=== PATIENT | female | born 1970 | race American Indian/Alaskan Native ===

== ENCOUNTER 2016-09-15 08:57 | Emergency (ER) | payer OTHER ==
[2016-09-15] MEDS ORDERED: TORADOL IM ONE (09:53)
[2016-09-15] MEDS ORDERED: TENORMIN PO ONE (10:03)
--- NOTE | 2016-09-15 10:22 | Emergency Department Report ---
ED Back Pain/Injury HPI - General Chief Complaint: Back Pain/Injury Stated Complaint: BODY PAIN Time Seen by Provider: 09/15/16 09:22 Source: patient Limitations: No Limitations - History of Present Illness Initial Comments: 46 y/o female complain of low back pain x1 day that radiate to right leg.pt state previous pain with relief of motrin 800.pt denies any prior medication .denies any injury . MD Complaint: back pain Onset/Timin -: days(s) Similar Symptoms Previously: Yes Place: home Radiation: right leg Severity: moderate Severity scale (0 -10): 5 Quality: aching Consistency: intermittent Improves With: none Worsens With: movement Associated Symptoms: denies other symptoms - Related Data Previous Rx's Medication Instructions Recorded Last Taken Type Ibuprofen [Motrin] 800 mg PO Q8H #30 tablet 07/26/14 Unknown Rx methOCARBAMOL [Robaxin] 500 mg PO BID #30 tab 07/26/14 Unknown Rx HYDROcodone/APAP 5-325 [[place] 1 - 2 each PO Q6HR PRN #10 tablet 04/03/15 Unknown Rx 5/325] metroNIDAZOLE [Flagyl TAB] 500 mg PO Q12HR #14 tab 04/03/15 Unknown Rx Atenolol [Tenormin] 25 mg PO DAILY #60 tab 03/16/16 Unknown Rx traMADol [Ultram 50 MG tab] 50 mg PO Q6HR PRN #20 tablet 03/16/16 Unknown Rx Atenolol [Tenormin] 25 mg PO DAILY #30 tab 09/15/[address] [Voltaren Dr] 75 mg PO TID #30 tablet 09/15/16 Unknown Rx Allergies Allergy/AdvReac Type Severity Reaction Status Date / Time No Known Allergies Allergy Unverified 07/26/14 08:23 ED Review of Systems ROS: Stated complaint: BODY PAIN Other details as noted in HPI Constitutional: denies: chills, fever Eyes: denies: eye pain, eye discharge, vision change ENT: denies: ear pain, throat pain Respiratory: denies: cough, shortness of breath, wheezing Cardiovascular: denies: chest pain, palpitations Endocrine: no symptoms reported Gastrointestinal: denies: abdominal pain, nausea, diarrhea Genitourinary: denies: urgency, dysuria, discharge Musculoskeletal: back pain. denies: joint swelling, arthralgia Skin: denies: rash, lesions Neurological: denies: headache, weakness, paresthesias Psychiatric: denies: anxiety, depression Hematological/Lymphatic: denies: easy bleeding, easy bruising ED Past Medical Hx - Past Medical History Hx Hypertension: Yes (no meds) - Surgical History Additional Surgical History: tubal ligation, hysterectomy - Social History Smoking Status: Current Every Day Smoker Substance Use Type: Alcohol - Medications Home Medications: Home Medications Medication Instructions Recorded Confirmed Last Taken Type Ibuprofen [Motrin] 800 mg PO Q8H #30 tablet 07/26/14 Unknown Rx methOCARBAMOL [Robaxin] 500 mg PO BID #30 tab 07/26/14 Unknown Rx HYDROcodone/APAP 5-325 [[place] 1 - 2 each PO Q6HR PRN #10 tablet 04/03/15 Unknown Rx 5/325] metroNIDAZOLE [Flagyl TAB] 500 mg PO Q12HR #14 tab 04/03/15 Unknown Rx Atenolol [Tenormin] 25 mg PO DAILY #60 tab 03/16/16 Unknown Rx traMADol [Ultram 50 MG tab] 50 mg PO Q6HR PRN #20 tablet 03/16/16 Unknown Rx Atenolol [Tenormin] 25 mg PO DAILY #30 tab 09/15/[address] [Voltaren Dr] 75 mg PO TID #30 tablet 09/15/16 Unknown Rx ED Physical Exam - General Limitations: No Limitations General appearance: alert, in no apparent distress - Head Head exam: Present: atraumatic, normocephalic - Eye Eye exam: Present: normal appearance, PERRL Pupils: Present: normal accommodation - ENT ENT exam: Present: mucous membranes moist - Neck Neck exam: Present: normal inspection - Respiratory Respiratory exam: Present: normal lung sounds bilaterally. Absent: respiratory distress - Cardiovascular Cardiovascular Exam: Present: regular rate, normal rhythm. Absent: systolic murmur, diastolic murmur, rubs, gallop - GI/Abdominal GI/Abdominal exam: Present: soft, normal bowel sounds - Extremities Exam Extremities exam: Present: normal inspection - Back Exam Back exam: Present: normal inspection, full ROM, tenderness, muscle spasm, paraspinal tenderness. Absent: CVA tenderness (R), CVA tenderness (L), vertebral tenderness - Expanded Back Exam Expanded Back exam: Absent: saddle anesthesia Back exam: Sciatic Notch Tenderness: Right, Positive Straight Leg Raise: Right, Negative Straight Leg Raising: Left - Neurological Exam Neurological exam: Present: alert, oriented X3 - Psychiatric Psychiatric exam: Present: normal affect, normal mood - Skin Skin exam: Present: warm, dry, intact, normal color. Absent: rash ED Course Vital Signs 09/15/16 09/15/16 09/15/16 09:02 10:04 10:20 Temperature 98.3 F Pulse Rate 82 82 Respiratory 20 18 Rate Blood Pressure 160/110 160/110 O2 Sat by Pulse 100 Oximetry ED Medical Decision Making - Radiology Data 2 v lumbar soine Impression : degenerative changes facet joints lower lumbar spine - Medical Decision Making degenerative joint in lower lumbar spine with sciatic pt was given tordal during course of Ed decrease pain to 5/10 Critical care attestation.: If time is entered above; I have spent that time in minutes in the direct care of this critically ill patient, excluding procedure time. ED Disposition Clinical Impression: Low back pain Qualifiers: Chronicity: acute Back pain laterality: bilateral Sciatica presence: with sciatica Sciatica laterality: sciatica of right side Qualified Code(s): M54.41 - Lumbago with sciatica, right side Disposition: DISCHARGED TO HOME OR SELFCARE Is pt being admited?: No Does the pt Need Aspirin: No Condition: Stable Instructions: Lumbar Radiculopathy (ED), Sciatica (ED) Prescriptions: Atenolol [Tenormin] 25 mg PO DAILY #[address] [Voltaren Dr] 75 mg PO TID #30 tablet Referrals: PRIMARY CARE, [Primary Care Provider] - 3-5 Days [facility] [Outside] - 3-5 Days Forms: Work/School Release Form(ED) Time of Disposition: 11:16
--- NOTE | 2016-09-15 10:42 | XRay Report ---
Lumbar spine 3 views: History: Back pain. Findings: Normal height of vertebral bodies and intervertebral disc. Normal articular surfaces. No fracture. Degenerative changes at the L4-5 and L5-S1 posterior elements. Impression: Degenerative changes facet joints lower lumbar spine.
[2016-09-15 11:26] VITALS: BP 142/99
== END 2016-09-15 11:27 | disposition home or self-care (01) ==
LOC: ED 08:57
DX: M54.41 Lumbago with sciatica, right side (principal); I10 Essential (primary) hypertension; F17.200 Nicotine dependence, unspecified, uncomplicated; Z98.51 Tubal ligation status; Z90.710 Acquired absence of both cervix and uterus
CPT/HCPCS: 72100; 96372; 99283; J1885

== ENCOUNTER 2016-10-21 15:09 | Emergency (ER) | payer SELFPAY ==
[2016-10-21 16:26] VITALS: BP 152/95
--- NOTE | 2016-10-21 19:44 | Emergency Department Report ---
Upper Extremity - HPI Chief Complaint: Pain General Stated Complaint: HAND/WRIST/ARM PAIN Time Seen by Provider: 10/21/16 19:38 Upper Extremity: Right Forearm (pain that started tingling), Right Wrist (pain it's tingling), Right Hand (pain that is tingling with swelling to hand.) Occurred When: >5 Days Mechanism: Unsure Severity: moderate Symptoms: Yes Pain with Movement (right hand/wrist and forearm), Yes Weakness ( right hand ), Yes Swelling (mild swelling to right hand), No Deformity, No Limited Range of Movement, No Numbness, No Bruising/Ecchymosis, No Laceration or Abrasion Other History: Patient here reports that she is having right hand pain with wrist and right forearm pain. Neuro nonfocal because she denies any injury. She says she's been taking [id number] medication without any relief. She denies any fall. Redness or fever. He said it's painful to move her right hand and it radiates to her wrist and distal forearm. ED Review of Systems ROS: Stated complaint: HAND/WRIST/ARM PAIN Other details as noted in HPI Comment: All other systems reviewed and negative Constitutional: no symptoms reported Respiratory: no symptoms reported Cardiovascular: denies: chest pain, palpitations, edema, syncope Gastrointestinal: denies: nausea, vomiting Musculoskeletal: joint swelling, arthralgia. denies: back pain Skin: denies: rash Neurological: weakness, paresthesias. denies: abnormal gait, vertigo ED Past Medical Hx - Past Medical History Previous Medical History?: Yes Hx Hypertension: Yes - Surgical History Past Surgical History?: Yes Additional Surgical History: tubal ligation, hysterectomy - Family History Family history: hypertension - Social History Smoking Status: Current Every Day Smoker Substance Use Type: Alcohol, Prescribed - Medications Home Medications: Home Medications Medication Instructions Recorded Confirmed Last Taken Type Ibuprofen [Motrin] 800 mg PO Q8H #30 tablet 07/26/14 Unknown Rx methOCARBAMOL [Robaxin] 500 mg PO BID #30 tab 07/26/14 Unknown Rx HYDROcodone/APAP 5-325 [[place] 1 - 2 each PO Q6HR PRN #10 tablet 04/03/15 Unknown Rx 5/325] metroNIDAZOLE [Flagyl TAB] 500 mg PO Q12HR #14 tab 04/03/15 Unknown Rx Atenolol [Tenormin] 25 mg PO DAILY #60 tab 03/16/16 Unknown Rx traMADol [Ultram 50 MG tab] 50 mg PO Q6HR PRN #20 tablet 03/16/16 Unknown Rx Atenolol [Tenormin] 25 mg PO DAILY #30 tab 09/15/[address] [Voltaren Dr] 75 mg PO TID #30 tablet 09/15/16 Unknown Rx HYDROcodone/APAP 5-325 [[place] 1 each PO Q6HR PRN #12 tablet 10/21/16 Unknown Rx 5/325] Ibuprofen [Motrin] 600 mg PO Q8H PRN #21 tablet 10/21/16 Unknown Rx Upper Extremity Exam - Exam General: Vital signs noted. No distress. Alert and acting appropriately. This is a 46-year-old female well-nourished well-developed in no acute distress. Head and Torso: No HEENT Abnormality, No Neck Tenderness, No Chest/Lungs Abnormality, No Abdominal Tenderness, No Back Tenderness Shoulder Exam: Yes Normal Range of Motion in Shoulder, No Shoulder Tenderness, No Clavicle Tenderness, No Shoulder Deformity, No AC Joint Tenderness Arm Exam: No Arm/Humerus Tenderness, No Arm Deformity Elbow: Yes Normal Range of Motion in Elbow, No Elbow Tenderness, No Elbow Deformity Forearm: Yes Forearm Tenderness (distal right forearm), No Forearm Deformity, No Pain with Pronation, No Pain with Supination Wrist: Yes Wrist Tenderness (right wrist), Yes Normal ROM in Wrist, Yes Snuffbox Tenderness, No Wrist Deformity, No Pain with Axial Thumb Compression Hand: Yes Hand Tenderness (right hand pain and swelling), Yes Normal ROM in Digit(s), No Hand Deformity, No Digit Tenderness, No Digit(s) Deformity, No Tendon Dysfunction CMS Exam: Yes Normal Distal Pulses, Yes Normal Capillary Refill, Yes Normal Distal Sensation, No Broken Skin ED Course Vital Signs 10/21/16 16:21 Temperature 97.9 F Pulse Rate 66 Respiratory 18 Rate Blood Pressure 152/95 O2 Sat by Pulse 100 Oximetry - Reevaluation(s) Reevaluation #1: 10/21/16 21:43 Given Toradol 60 mg IM and Decadron 10 mg IM and said she didn't have any relief in her pain. She is here by herself so I cannot give her anything stronger. - Orthopedic Splinting/Casting Injury #1 Side: right Upper Extremity Injury Location: wrist, hand Upper Extremity Immobilizer: thumb spica ED Medical Decision Making - Radiology Data Radiology results: report reviewed X-ray of right forearm revealed no fracture or dislocation or bony abnormality. X-ray of right hand reveal subtle. Ostitis along diaphysis the second metacarpal patient may reflect a healing fracture also on actual fractures not directly identified. X-ray of right wrist revealed no acute abnormalitie. The possible periostitis seen along the second metacarpal on the hand image is not identified on the wrist views. If Scaphoid fracture is suspected clinically, recommend follow-up radiographic in 7-10 days as these fractures can be initially occult. Patient with positive snuffbox tenderness. - Medical Decision Making ED course: I discussed the patient that although there is not an obvious fracture in her wrist and hand the radiologist. That is a possibility of an occult fracture in her hand and she will need to follow-up with orthopedic doctor in 7-10 days to have repeat x-ray of wrist and hand. And with positive snuffbox tenderness. She has pain with movement and swelling to dorsal aspect of hand. Discussed with her that x-ray of forearm was normal and there were no fractures seen in the wrist. Patient was given Decadron 10 mg IM and Toradol 60 mg IM and emergency room. He was understanding of diagnosis and discharge instruction. See procedure note for splinting details. Discharged home in stable condition with prescription for Kevil and Motrin. Critical care attestation.: If time is entered above; I have spent that time in minutes in the direct care of this critically ill patient, excluding procedure time. ED Disposition Clinical Impression: Arthralgia of multiple sites, Suspected fracture of bone, Swelling of joint, hand, right Disposition: DISCHARGED TO HOME OR SELFCARE Is pt being admited?: No Does the pt Need Aspirin: No Condition: Stable Instructions: Arthralgia (ED), Splint Care (ED) Additional Instructions: Your xray report shows that there might be a suspected fracture of her hand so please wear splint until you see orthopedic doctor. Take medication as prescribed and please avoid driving and operating heavy machinery while taking and K[place] as this can cause orthopedic doctor. Prescriptions: HYDROcodone/APAP 5-325 [[place] 5/325] 1 each PO Q6HR PRN #12 tablet PRN Reason: Pain Ibuprofen [Motrin] 600 mg PO Q8H PRN #21 tablet PRN Reason: Pain Referrals: CARLOS MUNIZ MD [Staff Physician] - 7-10 days Forms: Work/School Release Form(ED)
[2016-10-21] MEDS ORDERED: TORADOL IM ONE (19:45)
[2016-10-21] MEDS ORDERED: DECADRON IM STA (19:45)
--- NOTE | 2016-10-21 20:57 | XRay Report ---
FINAL REPORT EXAM: XR FOREARM 1V RT HISTORY: RT fA pain TECHNIQUE: Right forearm, AP and lateral PRIORS: None. FINDINGS: There is no fracture seen. There is no dislocation seen. There is no focal osseous lesion identified. IMPRESSION: There is no acute abnormality identified.
--- NOTE | 2016-10-21 20:59 | XRay Report ---
FINAL REPORT EXAM: XR HAND 3 RT HISTORY: pain /swelling rt hand TECHNIQUE: Three views of the right hand. PRIORS: None. FINDINGS: Oblique view of the hand demonstrate some probable smooth periostitis along the shaft of the 2nd metacarpal. This could reflect a healing fracture although actual fracture not visualized. There is some degenerative changes at the 2nd and 3rd MCP joints. There is no evidence of joint dislocation. IMPRESSION: Subtle periostitis along diaphysis of 2nd metacarpal which may reflect a healing fracture although an actual fracture not directly identified.
--- NOTE | 2016-10-21 21:00 | XRay Report ---
FINAL REPORT EXAM: XR WRIST 3 RT HISTORY: Pain TTP rt snuff box TECHNIQUE: Three views of the right wrist PRIORS: None. FINDINGS: There is no evidence of acute fracture. There is no evidence of joint dislocation. There is no significant focal osseous lesions seen. IMPRESSION: There is no acute abnormality identified. The possible periostitis seen along 2nd metacarpal on the hand images is not identified on wrist views. If scaphoid fracture is suspected clinically, recommend follow-up radiographs 7-10 days as these fractures can be initially occult.
== END 2016-10-21 22:11 | disposition home or self-care (01) ==
LOC: ED 15:09
DX: M25.531 Pain in right wrist (principal); M25.541 Pain in joints of right hand; I10 Essential (primary) hypertension; F17.200 Nicotine dependence, unspecified, uncomplicated; Z98.51 Tubal ligation status; Z90.710 Acquired absence of both cervix and uterus
CPT/HCPCS: 29125; 73090; 73110; 73130; 96372; 99283; J1100; J1885

== ENCOUNTER 2017-11-10 15:24 | Emergency (ER) | payer SELFPAY ==
[2017-11-10 20:35] VITALS: BP 156/99
[2017-11-10] MEDS ORDERED: DILAUDID IV ONE (21:20)
[2017-11-10] MEDS ORDERED: TORADOL IV ONE (21:20)
--- NOTE | 2017-11-10 21:21 | Emergency Department Report ---
ED Back Pain/Injury HPI - General Chief Complaint: Back Pain/Injury Stated Complaint: BACK/LEG/HIP PAIN RIGHT SIDE Time Seen by Provider: 11/10/17 21:00 Source: patient, RN notes reviewed Limitations: No Limitations - History of Present Illness Initial Comments: This is a 47-year-old female. The patient is previously known to this provider. She does not have a local primary care doctor. She has a past medical history of hypertension and a distant history of hysterectomy. Patient also has a history of "lumbar disc disease." Patient presents to the ER with a complaint of nontraumatic right lower back pain that radiates down the right lower extremity. This has been present for one week, and increases with walking, range of motion , twisting. There is no fevers, chills, nausea, vomiting, chest pain, abdominal pain. There is no bladder or bowel retention or incontinence. There is no saddle anesthesia. MD Complaint: back pain -: Gradual, days(s) Similar Symptoms Previously: Yes Radiation: buttocks, right leg Severity: moderate Quality: burning, sharp Consistency: intermittent Improves With: other Worsens With: movement, supine, sitting upright, walking Associated Symptoms: numbness. denies: confusion, weakness, chest pain, difficulty walking, cough, difficulty urinating, diaphoresis, incontinence, fever/chills, constipation, headaches, abdominal pain, loss of appetite, malaise , nausea/vomiting, rash, seizure, shortness of breath, syncope - Related Data Previous Rx's Medication Instructions Recorded Last Taken Type Ibuprofen [Motrin] 800 mg PO Q8H #30 tablet 07/26/14 Unknown Rx methOCARBAMOL [Robaxin] 500 mg PO BID #30 tab 07/26/14 Unknown Rx HYDROcodone/APAP 5-325 [[place] 1 - 2 each PO Q6HR PRN #10 tablet 04/03/15 Unknown Rx 5/325] metroNIDAZOLE [Flagyl TAB] 500 mg PO Q12HR #14 tab 04/03/15 Unknown Rx Atenolol [Tenormin] 25 mg PO DAILY #60 tab 03/16/16 Unknown Rx traMADol [Ultram 50 MG tab] 50 mg PO Q6HR PRN #20 tablet 03/16/16 Unknown Rx Atenolol [Tenormin] 25 mg PO DAILY #30 tab 09/15/16 Unknown Rx Abril Chin [Radha Chin] 75 mg PO TID #30 tablet 09/15/16 Unknown Rx HYDROcodone/APAP 5-325 [[place] 1 each PO Q6HR PRN #12 tablet 10/21/16 Unknown Rx 5/325] Ibuprofen [Motrin] 600 mg PO Q8H PRN #21 tablet 10/21/16 Unknown Rx Acetaminophen [Tylenol Arthritis] 650 mg PO Q6HR PRN #30 tablet.er 11/10/17 Unknown Rx Ibuprofen [Motrin] 600 mg PO Q8H PRN #30 tablet 11/10/17 Unknown Rx Allergies Allergy/AdvReac Type Severity Reaction Status Date / Time No Known Allergies Allergy Unverified 07/26/14 08:23 ED Review of Systems ROS: Stated complaint: BACK/LEG/HIP PAIN RIGHT SIDE Other details as noted in HPI Comment: All other systems reviewed and negative ED Past Medical Hx - Past Medical History Hx Hypertension: Yes - Surgical History Additional Surgical History: tubal ligation, hysterectomy - Social History Smoking Status: Current Every Day Smoker Substance Use Type: Alcohol - Medications Home Medications: Home Medications Medication Instructions Recorded Confirmed Last Taken Type Ibuprofen [Motrin] 800 mg PO Q8H #30 tablet 07/26/14 Unknown Rx methOCARBAMOL [Robaxin] 500 mg PO BID #30 tab 07/26/14 Unknown Rx HYDROcodone/APAP 5-325 [[place] 1 - 2 each PO Q6HR PRN #10 tablet 04/03/15 Unknown Rx 5/325] metroNIDAZOLE [Flagyl TAB] 500 mg PO Q12HR #14 tab 04/03/15 Unknown Rx Atenolol [Tenormin] 25 mg PO DAILY #60 tab 03/16/16 Unknown Rx traMADol [Ultram 50 MG tab] 50 mg PO Q6HR PRN #20 tablet 03/16/16 Unknown Rx Atenolol [Tenormin] 25 mg PO DAILY #30 tab 09/15/[address] [Radha Chin] 75 mg PO TID #30 tablet 09/15/16 Unknown Rx HYDROcodone/APAP 5-325 [[place] 1 each PO Q6HR PRN #12 tablet 10/21/16 Unknown Rx 5/325] Ibuprofen [Motrin] 600 mg PO Q8H PRN #21 tablet 10/21/16 Unknown Rx Acetaminophen [Tylenol Arthritis] 650 mg PO Q6HR PRN #30 tablet.er 11/10/17 Unknown Rx Ibuprofen [Motrin] 600 mg PO Q8H PRN #30 tablet 11/10/17 Unknown Rx ED Physical Exam - General Limitations: No Limitations General appearance: alert, in no apparent distress - Head Head exam: Present: atraumatic, normocephalic - Eye Eye exam: Present: normal appearance, PERRL, EOMI - ENT ENT exam: Present: normal exam, normal orophraynx, mucous membranes moist, normal external ear exam - Neck Neck exam: Present: normal inspection, full ROM - Respiratory Respiratory exam: Present: normal lung sounds bilaterally. Absent: respiratory distress - Cardiovascular Cardiovascular Exam: Present: regular rate, normal rhythm, normal heart sounds. Absent: systolic murmur, diastolic murmur, rubs, gallop - GI/Abdominal GI/Abdominal exam: Present: soft, normal bowel sounds. Absent: distended, tenderness, guarding, rebound, rigid, pulsatile mass - Extremities Exam Extremities exam: Present: normal inspection, full ROM, normal capillary refill , other (there is a positive straight leg raise the right lower extremity. Downgoing plantar reflexes in the bilateral lower extremities. Compartments are soft in the bilateral lower extremities. 2+ pulses noted in the bilateral lower extremities. Downgoing plantar reflexes bilaterally.). Absent: pedal edema, joint swelling, calf tenderness - Back Exam Back exam: Present: normal inspection - Neurological Exam Neurological exam: Present: alert, oriented X3, CN II-XII intact, other ( Extraocular movements intact. Tongue midline. No facial droop. Facial sensation intact to light touch in the V1, V2, V3 distribution bilaterally. 5 and 5 strength in 4 extremities.. Sensation is intact to light touch in 4 extremities.). Absent: motor sensory deficit (bilateral proprioception intact in the bilateral lower extremities. Sensation intact to light touch in the bilateral lower extremities.) - Psychiatric Psychiatric exam: Present: normal affect, normal mood - Skin Skin exam: Present: warm, dry, intact, normal color. Absent: rash ED Course Vital Signs 11/10/17 11/10/17 15:26 20:30 Temperature 98.4 F Pulse Rate 70 59 L Respiratory 18 Rate Blood Pressure 156/81 156/99 O2 Sat by Pulse 96 94 Oximetry - Reevaluation(s) Reevaluation #1: 11/10/17 22:00 The patient feels much improved after pain medicine. She is able to walk with a steady gait. Her peak neurologic examination is within normal limits. She will be discharged. ED Medical Decision Making - Lab Data Vital Signs 11/10/17 11/10/17 15:26 20:30 Temperature 98.4 F Pulse Rate 70 59 L Respiratory 18 Rate Blood Pressure 156/81 156/99 O2 Sat by Pulse 96 94 Oximetry - Medical Decision Making Differential diagnosis, including not limited to: Radiculopathy, sciatica Assessment and plan: 47-year-old female with 7 days of radicular symptoms. No clinical indication of epidural compression syndrome or AAA at this time. There is no pulsatile abdominal mass. Physical exam otherwise unremarkable. There is a significant pain component to the patient's presentation. Patient will be given hydromorphone, Toradol for acute symptom relief, she will need to follow up with outpatient pain medication, primary care, neurosurgery for definitive management. Critical care attestation.: If time is entered above; I have spent that time in minutes in the direct care of this critically ill patient, excluding procedure time. ED Disposition Clinical Impression: Acute radicular low back pain Disposition: DC-01 TO HOME OR SELFCARE Is pt being admited?: No Does the pt Need Aspirin: No Condition: Stable Instructions: Lumbar Radiculopathy (ED) Additional Instructions: Rest, and avoid heavy lifting. Avoid strenuous physical activity. Take pain medication as directed. Follow up with a primary care doctor within the next month. Follow up with a pain specialist or yard specialist within the next month. Pain typically gets worse before it gets better. Return to the ER right away with new pain, worsened pain, migration of pain, fevers, chills, intractable nausea or vomiting, confusion, bladder or bowel retention/ incontinence, change in mental status. Prescriptions: Acetaminophen [Tylenol Arthritis] 650 mg PO Q6HR PRN #30 tablet.er PRN Reason: Pain Ibuprofen [Motrin] 600 mg PO Q8H PRN #30 tablet PRN Reason: Pain Referrals: MAURY ZUNIGA MD [Primary Care Provider] - 3-5 Days DARWIN SINCLAIR MD [Staff Physician] - 3-5 Days CALEB LOPEZ MD [Staff Physician] - 3-5 Days
[2017-11-10] MEDS ORDERED: DILAUDID IM ONE (21:37)
[2017-11-10] MEDS ORDERED: TORADOL IM ONE (21:38)
== END 2017-11-10 22:08 | disposition home or self-care (01) ==
LOC: ED 15:24
DX: M54.5 Low back pain (principal)
CPT/HCPCS: 96372; 99281; J1170; J1885

== ENCOUNTER 2018-01-23 12:43 | Emergency (ER) | payer SELFPAY ==
[2018-01-23] MEDS ORDERED: CATAPRES PO ONE (13:22)
--- NOTE | 2018-01-23 13:28 | Emergency Department Report ---
ED Female HPI - General Chief complaint: Abdominal Pain Stated complaint: ABD PAIN/ VAG DISCHARGE Time Seen by Provider: 01/23/18 13:24 Source: patient, family Mode of arrival: Ambulatory Limitations: No Limitations - History of Present Illness Initial comments: This is a 47-year-old female complaining of abdominal pain. 3 days to her lower abdomen and report brownish vaginal discharge for 4 days. She has a history of hypertension and she is on atenolol 25 mg daily and lisinopril 5 mg daily. She doesn't primary care physician. Platelet pressure is 194/119 and she is asymptomatic with intact neurological system. She is here because she says she is possible been exposed to STD from her who disappeared a month ago and she has heard from him. She says she was told that he had unprotected sex and she doesn't have these happen until she's had she would like to be treated for STD denies any vaginal bleeding and she has a history of hysterectomy. Abdominal pain is 7 out of 10 and crampy on and off no alleviating or exacerbating factor. No medication taken. Denies any fever or chills or nausea or vomiting. Denies any back pain. MD Complaint: vaginal discharge, pelvic pain, possible STD Onset/Timin -: days(s) Location: suprapubic Radiation: non-radiating Severity: severe Severity scale (0 -10): 7 Quality: cramping Consistency: intermittent Improves with: none Are you Now?: No (hysterectomy) Associated Symptoms: vaginal discharge, abdominal pain. denies: vaginal bleeding, nausea/vomiting, fever/chills, headaches, loss of appetite, dysuria, hematuria, rash, seizure, shortness of breath, syncope, weakness - Related Data Sexually active: No Previous Rx's Medication Instructions Recorded Last Taken Type Ibuprofen [Motrin] 800 mg PO Q8H #30 tablet 07/26/14 Unknown Rx methOCARBAMOL [Robaxin] 500 mg PO BID #30 tab 07/26/14 Unknown Rx HYDROcodone/APAP 5-325 [[place] 1 - 2 each PO Q6HR PRN #10 tablet 04/03/15 Unknown Rx 5/325] metroNIDAZOLE [Flagyl TAB] 500 mg PO Q12HR #14 tab 04/03/15 Unknown Rx traMADol [Ultram 50 MG tab] 50 mg PO Q6HR PRN #20 tablet 03/16/[address] [Voltaren Dr] 75 mg PO TID #30 tablet 09/15/16 Unknown Rx HYDROcodone/APAP 5-325 [[place] 1 each PO Q6HR PRN #12 tablet 10/21/16 Unknown Rx 5/325] Ibuprofen [Motrin] 600 mg PO Q8H PRN #21 tablet 10/21/16 Unknown Rx Acetaminophen [Tylenol Arthritis] 650 mg PO Q6HR PRN #30 tablet.er 11/10/17 Unknown Rx Ibuprofen [Motrin] 600 mg PO Q8H PRN #30 tablet 11/10/17 Unknown Rx Atenolol 50 mg PO QDAY 30 Days #30 tablet 01/23/18 Unknown Rx Fluconazole [Diflucan TAB] 100 mg PO QDAY 2 Days #2 tablet 01/23/18 Unknown Rx Lisinopril [Zestril TAB] 10 mg PO QDAY 30 Days #30 tablet 01/23/18 Unknown Rx metroNIDAZOLE [Flagyl] 500 mg PO Q12HR 7 Days #14 tab 01/23/18 Unknown Rx Allergies Allergy/AdvReac Type Severity Reaction Status Date / Time No Known Allergies Allergy Unverified 07/26/14 08:23 ED Review of Systems ROS: Stated complaint: ABD PAIN/ VAG DISCHARGE Other details as noted in HPI Constitutional: denies: chills, fever Eyes: denies: eye discharge ENT: denies: throat pain Respiratory: denies: cough, orthopnea, shortness of breath, SOB with exertion, SOB at rest, stridor, wheezing Cardiovascular: denies: chest pain, palpitations, edema, syncope Gastrointestinal: abdominal pain. denies: nausea, vomiting, diarrhea, constipation, hematemesis, melena, hematochezia Genitourinary: discharge, other (possible STD exposure). denies: urgency, dysuria, hematuria Musculoskeletal: denies: back pain, joint swelling, arthralgia, myalgia Skin: denies: rash, lesions Neurological: denies: headache, weakness ED Past Medical Hx - Past Medical History Previous Medical History?: Yes Hx Hypertension: Yes - Surgical History Past Surgical History?: Yes Additional Surgical History: tubal ligation, hysterectomy - Family History Family history: hypertension - Social History Smoking Status: Current Every Day Smoker Substance Use Type: Alcohol, Marijuana, Prescribed - Medications Home Medications: Home Medications Medication Instructions Recorded Confirmed Last Taken Type Ibuprofen [Motrin] 800 mg PO Q8H #30 tablet 07/26/14 Unknown Rx methOCARBAMOL [Robaxin] 500 mg PO BID #30 tab 07/26/14 Unknown Rx HYDROcodone/APAP 5-325 [[place] 1 - 2 each PO Q6HR PRN #10 tablet 04/03/15 Unknown Rx 5/325] metroNIDAZOLE [Flagyl TAB] 500 mg PO Q12HR #14 tab 04/03/15 Unknown Rx traMADol [Ultram 50 MG tab] 50 mg PO Q6HR PRN #20 tablet 03/16/[address] [Voltaren Dr] 75 mg PO TID #30 tablet 09/15/16 Unknown Rx HYDROcodone/APAP 5-325 [[place] 1 each PO Q6HR PRN #12 tablet 10/21/16 Unknown Rx 5/325] Ibuprofen [Motrin] 600 mg PO Q8H PRN #21 tablet 10/21/16 Unknown Rx Acetaminophen [Tylenol Arthritis] 650 mg PO Q6HR PRN #30 tablet.er 11/10/17 Unknown Rx Ibuprofen [Motrin] 600 mg PO Q8H PRN #30 tablet 11/10/17 Unknown Rx Atenolol 50 mg PO QDAY 30 Days #30 tablet 01/23/18 Unknown Rx Fluconazole [Diflucan TAB] 100 mg PO QDAY 2 Days #2 tablet 01/23/18 Unknown Rx Lisinopril [Zestril TAB] 10 mg PO QDAY 30 Days #30 tablet 01/23/18 Unknown Rx metroNIDAZOLE [Flagyl] 500 mg PO Q12HR 7 Days #14 tab 01/23/18 Unknown Rx ED Physical Exam - General Limitations: No Limitations General appearance: alert, in no apparent distress - Head Head exam: Present: atraumatic, normocephalic, normal inspection - Eye Eye exam: Present: normal appearance, PERRL, EOMI Pupils: Present: normal accommodation - ENT ENT exam: Present: normal exam, normal orophraynx, mucous membranes moist - Neck Neck exam: Present: normal inspection, full ROM. Absent: tenderness, lymphadenopathy - Respiratory Respiratory exam: Present: normal lung sounds bilaterally. Absent: respiratory distress, chest wall tenderness - Cardiovascular Cardiovascular Exam: Present: regular rate, normal rhythm, normal heart sounds. Absent: systolic murmur, diastolic murmur - GI/Abdominal GI/Abdominal exam: Present: soft, normal bowel sounds. Absent: distended, tenderness, guarding, rebound, rigid, organomegaly, mass, bruit, pulsatile mass , hernia - External exam: Present: normal external exam Speculum exam: Present: vaginal discharge. Absent: cervical discharge, vaginal bleeding, foreign body, tissue, laceration Bi-manual exam: Present: normal bi-manual exam - Extremities Exam Extremities exam: Present: normal inspection, full ROM, normal capillary refill , other (no clubbing, cyanosis or edema. +2 pulses to all extremities and no neurovascular compromise). Absent: tenderness, pedal edema, joint swelling, calf tenderness - Back Exam Back exam: Present: normal inspection, full ROM. Absent: tenderness, CVA tenderness (R), CVA tenderness (L), muscle spasm, paraspinal tenderness, vertebral tenderness, rash noted - Neurological Exam Neurological exam: Present: alert, oriented X3, normal gait - Psychiatric Psychiatric exam: Present: normal affect, normal mood - Skin Skin exam: Present: warm, dry, intact, normal color. Absent: rash ED Course Vital Signs 01/23/18 01/23/18 01/23/18 12:52 13:44 13:49 Temperature 98.3 F 97.6 F Pulse Rate 61 100 H 100 H Respiratory 20 20 Rate Blood Pressure 194/119 169/101 Blood Pressure 169/101 [Left] O2 Sat by Pulse 99 99 Oximetry 01/23/18 14:40 Temperature 98.6 F Pulse Rate 68 Respiratory 18 Rate Blood Pressure Blood Pressure 166/103 [Left] O2 Sat by Pulse 99 Oximetry - Reevaluation(s) Reevaluation #1: 01/23/18 13:59 Patient was given clonidine 0.2 mg elevated blood pressure and she has been asymptomatic with elevated blood pressure.. Pelvic exam done and awaiting test results. Abdominal exam is normal. We'll recheck blood pressure Reevaluation #2: 01/23/18 16:03 Patient blood pressure remained the same was asymptomatic. Plan to increase her lisinopril from 5 mg to 10 mg daily and atenolol from 25 mg to 50 mg. Patient wants to be treated empirically in the emergency room for gonorrhea and chlamydia so we'll give her Rocephin 250 mg IM and azithromycin 1 g by mouth. ED Medical Decision Making - Lab Data Lab Results 01/23/18 Range/Units 13:46 Urine Color Yellow (Yellow) Urine Turbidity Clear (Clear) Urine pH 5.0 (5.0-7.0) Ur Specific Dora 1.017 (1.003-1.030) Urine Protein <15 mg/dl (Negative) mg/dL Urine Glucose (UA) Neg (Negative) mg/dL Urine Ketones Neg (Negative) mg/dL Urine Blood Sm (Negative) Urine Nitrite Neg (Negative) Urine Bilirubin Neg (Negative) Urine Urobilinogen < 2.0 (<2.0) mg/dL Ur Leukocyte Esterase Neg (Negative) Urine WBC (Auto) 1.0 (0.0-6.0) /HPF Urine RBC (Auto) 2.0 (0.0-6.0) /HPF U Epithel Cells (Auto) < 1.0 (0-13.0) /HPF Urine Mucus Few /HPF Urine HCG, Qual Negative (Negative) Wet prep less than 20% clue cell, rare yeast and no Trichomonas CHL Pending - Medical Decision Making ED course: She reports that she is having brownish vaginal discharge with some abdominal cramping. She denies any vaginal bleeding and has a history of hysterectomy. She said that her had unprotected sex with another person and she found this out from one of his family member but he left the country and she doesn't know where he is to see if he is having symptoms. Patient that she is here to be checked for STD and she would like to be treated for STD. Patient was evaluated and pelvic exam done. Patient with white discharge with mild odor to the vaginal vault. Wet prep done and patient has less than 20% to cells, rare yeast and no Trichomonas. Gonorrhea and chlamydia tests are pending. Urinalysis shows small amount of blood otherwise normal. Labs reviewed and I discussed this with patient. Will be treated empirically for an emergency room gonorrhea and chlamydia in emergency room at her choice. She'll be treated for bacterial vaginosis and yeast infection. I discussed lab results the patient's and she voiced understanding. I discussed with her that she needs to follow up at [facility] she does have a primary care with [facility] for repeat testing in 7-10 days and she voiced understanding. A/P 1: Female concern for STD would not diagnosis: CHl pended. Patient treated for gonorrhea with twinge of 250 mg of ceftriaxone IM and 1 g of azithromycin by mouth for chlamydia without any adverse reaction. 2: Bacterial vaginosis: Will be sent home on Flagyl 3: Yeast vaginitis-will be sent home on Diflucan for 2 days 4: Pelvic cramping-stable now 5: Elevated blood pressure was high blood pressure. Patient is on lisinopril 5 mg and atenolol 25 mg by mouth which she says she took this morning. She was given clonidine 0.2 mg which did not really affect her blood pressure but she is asymptomatic with elevated blood pressure. I discussed the patient that I will increase her lisinopril to 10 mg daily and atenolol to 50 mg daily and she agrees. Patient discharged home with prescription for lisinopril, atenolol, Flagyl and Diflucan. Educated on medication, STD, safe sex, blood pressure effects on organ 1 left untreated, diagnosis and need to follow-up for STD check. Patient referred to [facility] for primary care and [facility] follow -up. Discharged home in stable condition. Blood pressure is elevated but she is stable and her blood pressure medication were increased. Patient is nontoxic in appearance is that she feels better. She had no adverse reaction from medication. She voiced understanding of discharge instructions and I inform her she should return to the emergency room if her condition worsens. - Differential Diagnosis PID, STD, UTI, ovarian abnormality. Critical care attestation.: If time is entered above; I have spent that time in minutes in the direct care of this critically ill patient, excluding procedure time. ED Disposition Clinical Impression: Concern about STD in female without diagnosis, Vaginal discharge, Pelvic pain, Yeast infection, Bacterial vaginosis, Elevated blood pressure reading with diagnosis of hypertension Disposition: TO HOME OR SELFCARE Is pt being admited?: No Does the pt Need Aspirin: No Condition: Stable Instructions: Bacterial Vaginosis (ED), Sexually Transmitted Diseases (ED), Safe Sex (ED), Vaginitis (ED), Acute Abdominal Pain (ED), Abdominal Pain (ED), Hypertension (ED) Additional Instructions: Please follow up with outside Medical Center since he do not have a primary care or [facility] for follow-up exam and also for Pap smear. Call and schedule appointment for [facility] and primary care visit. You're treated for gonorrhea and Chlamydia in the emergency room and she will need to get retested in 7-10 days at [facility] or he can return to medical records twice a day and get results in 5 days and if it's negative then he will not need to have retested in. Flagyl is for bacterial vaginosis Diflucan Is for yeast infection Please keep a log of your blood pressure and take to your primary care physician visit with you Discontinue taking lisinopril 5 mg and Atenolol 25 mg and started taken lisinopril 10 mg and atenolol 50 mg daily Prescriptions: Atenolol 50 mg PO QDAY 30 Days #30 tablet Fluconazole [Diflucan TAB] 100 mg PO QDAY 2 Days #2 tablet Lisinopril [Zestril TAB] 10 mg PO QDAY 30 Days #30 tablet metroNIDAZOLE [Flagyl] 500 mg PO Q12HR 7 Days #14 tab Referrals: [facility] [Outside] - 3-5 Days Forms: STI Treatment and Prevention, Work/School Release Form(ED)
[2018-01-23 14:16] LABS: Bilirubin,Urine NEG (Negative); Blood,Urine SM (Negative); Color,Urine Yellow (Yellow); Mucus,Urine FEW /HPF; Protein,Urine <15 mg/dL mg/dL (Negative); Urobilinogen,Urine < 2.0 mg/dL (<2.0)
[2018-01-23 14:19] LABS: HCG Qualitative,Urine Negative (Negative)
[2018-01-23 14:41] VITALS: BP 166/103
[2018-01-23] MEDS ORDERED: ROCEPHIN IM ONE (16:04)
[2018-01-23] MEDS ORDERED: XYLOCAINE 1% MPF 5 mL INFILTRATI ONE (16:04)
[2018-01-23] MEDS ORDERED: ZITHROMAX PO ONE (16:04)
== END 2018-01-23 16:42 | disposition home or self-care (01) ==
LOC: ED 12:43
DX: A54.02 Gonococcal vulvovaginitis, unspecified (principal); I10 Essential (primary) hypertension; F12.10 Cannabis abuse, uncomplicated; F17.200 Nicotine dependence, unspecified, uncomplicated; Z90.710 Acquired absence of both cervix and uterus; Z98.51 Tubal ligation status
CPT/HCPCS: 81001; 81025; 87086; 87210; 87591; 96372; 99284; J0696

== ENCOUNTER 2018-05-22 09:17 | Outpatient (CLI) | payer OTHER ==
--- NOTE | 2018-05-22 10:45 | XRay Report ---
LUMBAR SPINE RADIOGRAPHS INDICATION: Nerve damage, pain, disability exam. COMPARISON: 09/15/2016. FINDINGS: AP and lateral lumbar spine radiographs again demonstrate normal vertebral body stature, alignment and disc heights. Lower lumbar facet arthropathy again suspected. Few pelvic phleboliths. Aortic atherosclerotic calcifications. Nonobstructive bowel gas pattern. Clear visualized lung bases. CONCLUSION: No acute radiographic abnormality with lower lumbar degenerative changes again noted, as described. Thank you for the opportunity to participate in this patient's care.
== END 2018-05-22 09:18 | disposition home or self-care (01) ==
LOC: XRAY 09:17
PROVIDERS: ATTEND Internal Medicine
DX: Z02.71 Encounter for disability determination (principal); M54.6 Pain in thoracic spine; I10 Essential (primary) hypertension; Z87.891 Personal history of nicotine dependence
CPT/HCPCS: 72100

== ENCOUNTER 2019-12-15 14:05 | Observation (INO) | payer MEDICAID ==
--- NOTE | 2019-12-15 16:02 | XRay Report ---
CHEST 1 VIEW INDICATION / CLINICAL INFORMATION: cp. Chest pain COMPARISON: None available. FINDINGS: SUPPORT DEVICES: None. HEART / MEDIASTINUM: No significant abnormality. LUNGS / PLEURA: No significant pulmonary or pleural abnormality. No pneumothorax. ADDITIONAL FINDINGS: No significant additional findings. IMPRESSION: 1. No acute findings. Signer Name: Hero Arriaga MD Signed: 12/15/2019 3:57 PM Workstation Name: [id number]
[2019-12-15] MEDS ORDERED: MORPHINE 4 MG/1 ML INJ IV ONE (16:08)
[2019-12-15] MEDS ORDERED: ONDANSETRON 4 MG/2 ML INJ IV ONE (16:08)
[2019-12-15 16:12] LABS: Bilirubin,Urine NEG (Negative); Blood,Urine SM (Negative); Color,Urine Yellow (Yellow); Mucus,Urine 2+ /HPF
[2019-12-15 16:13] LABS: Basophils # (Auto) 0.1 K/mm3 (0.0-0.1); Basophils % (Auto) 0.9 % (0.0-1.8); Eosinophils # (Auto) 0.1 K/mm3 (0.0-0.4); Eosinophils % (Auto) 1.2 % (0.0-4.3); Hematocrit 40.6 % (30.3-42.9); Hemoglobin 14.2 gm/dl (10.1-14.3); Lymphocytes # (Auto) 3.2 K/mm3 (1.2-5.4); Lymphocytes % (Auto) 39.2 % (13.4-35.0); Mean Corpuscular HGB Conc 35 % (30-34); Mean Corpuscular Volume 102 fl (79-97); Monocytes # (Auto) 0.4 K/mm3 (0.0-0.8); Monocytes % (Auto) 4.7 % (0.0-7.3); Platelet Count 244 K/mm3 (140-440); Red Blood Count 3.97 M/mm3 (3.65-5.03); Red Cell Distribution Width 13.6 % (13.2-15.2)
[2019-12-15 16:34] LABS: Alanine Aminotransferase 27 units/L (7-56); Albumin 4.2 g/dL (3.9-5); BUN/Creatinine Ratio 16; Blood Urea Nitrogen 18 mg/dL (7-17); Calcium 10.1 mg/dL (8.4-10.2); Hemolysis Index 2; INR 0.94 (0.87-1.13)
--- NOTE | 2019-12-15 17:13 | Emergency Department Report ---
ED Chest Pain HPI - General Chief Complaint: Chest Pain Stated Complaint: CHEST PAIN Time Seen by Provider: 12/15/19 15:23 Source: patient, EMS Mode of arrival: Stretcher Limitations: No Limitations - History of Present Illness Initial Comments: 49-year-old female with a past medical history of hypertension, obesity, + fhx of CAD, and tobacco use/smoking presents to the hospital with complaints of intermittent chest pain for the last 5 days. Patient states it feels like a sharp pressure in the center of her chest radiates to her back and also epiga stric area. Pain is worse with lying supine. Also worse with deep inspiration and touch. She denies shortness of breath but did have episodes of nausea and vomiting yesterday morning that have since resolved. She denies diaphoresis, hematemesis, melena, diarrhea, cough, or fever. Patient received 0.4 mg of nitroglycerin and aspirin 324 mg in route to the hospital without improvement in symptoms. Patient does not currently have a primary care doctor. Severity scale (0 -10): 7 - Related Data Previous Rx's Medication Instructions Recorded Last Taken Type Ibuprofen [Motrin] 800 mg PO Q8H #30 tablet 07/26/14 Unknown Rx methOCARBAMOL [Robaxin] 500 mg PO BID #30 tab 07/26/14 Unknown Rx HYDROcodone/APAP 5-325 [[place] 1 - 2 each PO Q6HR PRN #10 tablet 04/03/15 Unknown Rx 5/325] metroNIDAZOLE [Flagyl TAB] 500 mg PO Q12HR #14 tab 04/03/15 Unknown Rx traMADoL [Ultram 50 MG tab] 50 mg PO Q6HR PRN #20 tablet 03/16/16 Unknown Rx Diclofenac [Radha Chin] 75 mg PO TID #30 tablet 09/15/16 Unknown Rx HYDROcodone/APAP 5-325 [[place] 1 each PO Q6HR PRN #12 tablet 10/21/16 Unknown Rx 5/325] Ibuprofen [Motrin] 600 mg PO Q8H PRN #21 tablet 10/21/16 Unknown Rx Acetaminophen [Tylenol Arthritis] 650 mg PO Q6HR PRN #30 tablet.er 11/10/17 Unknown Rx Ibuprofen [Motrin] 600 mg PO Q8H PRN #30 tablet 11/10/17 Unknown Rx Fluconazole [Diflucan TAB] 100 mg PO QDAY 2 Days #2 tablet 01/23/18 Unknown Rx atenoloL [Atenolol] 50 mg PO QDAY 30 Days #30 tablet 01/23/18 Unknown Rx lisinopriL [Zestril TAB] 10 mg PO QDAY 30 Days #30 tablet 01/23/18 Unknown Rx metroNIDAZOLE [Flagyl] 500 mg PO Q12HR 7 Days #14 tab 01/23/18 Unknown Rx Allergies Allergy/AdvReac Type Severity Reaction Status Date / Time No Known Allergies Allergy Unverified 07/26/14 08:23 Heart Score - HEART Score History: Moderately suspicious EKG: Normal Age: 45-65 Risk factors: > 3 risk factors or hx of atherosclerotic disease Troponin: < normal limit HEART Score: 4 ED Review of Systems ROS: Stated complaint: CHEST PAIN Other details as noted in HPI Comment: All other systems reviewed and negative ED Past Medical Hx - Past Medical History Hx Hypertension: Yes - Surgical History Additional Surgical History: tubal ligation, hysterectomy - Social History Smoking Status: Current Every Day Smoker Substance Use Type: Alcohol - Medications Home Medications: Home Medications Medication Instructions Recorded Confirmed Last Taken Type Ibuprofen [Motrin] 800 mg PO Q8H #30 tablet 07/26/14 Unknown Rx methOCARBAMOL [Robaxin] 500 mg PO BID #30 tab 07/26/14 Unknown Rx HYDROcodone/APAP 5-325 [[place] 1 - 2 each PO Q6HR PRN #10 tablet 04/03/15 Unknown Rx 5/325] metroNIDAZOLE [Flagyl TAB] 500 mg PO Q12HR #14 tab 04/03/15 Unknown Rx traMADoL [Ultram 50 MG tab] 50 mg PO Q6HR PRN #20 tablet 03/16/[address] [Radha Chni] 75 mg PO TID #30 tablet 09/15/16 Unknown Rx HYDROcodone/APAP 5-325 [[place] 1 each PO Q6HR PRN #12 tablet 10/21/16 Unknown Rx 5/325] Ibuprofen [Motrin] 600 mg PO Q8H PRN #21 tablet 10/21/16 Unknown Rx Acetaminophen [Tylenol Arthritis] 650 mg PO Q6HR PRN #30 tablet.er 11/10/17 Unknown Rx Ibuprofen [Motrin] 600 mg PO Q8H PRN #30 tablet 11/10/17 Unknown Rx Fluconazole [Diflucan TAB] 100 mg PO QDAY 2 Days #2 tablet 01/23/18 Unknown Rx atenoloL [Atenolol] 50 mg PO QDAY 30 Days #30 tablet 01/23/18 Unknown Rx lisinopriL [Zestril TAB] 10 mg PO QDAY 30 Days #30 tablet 01/23/18 Unknown Rx metroNIDAZOLE [Flagyl] 500 mg PO Q12HR 7 Days #14 tab 01/23/18 Unknown Rx ED Physical Exam - General Limitations: No Limitations - Other Other exam information: General: No acute distress Head: Atraumatic Eyes: normal appearance ENT: Moist mucous membranes Neck: Normal appearance, no midline tenderness Chest: Clear to auscultation bilaterally, anterior chest wall tenderness at the sternum CV: Regular rate and rhythm Abdomen: Soft, normal bowel sounds,epigastric tenderness, nondistended, no rebound or guarding Back: Normal inspection Extremity: Normal inspection, full range of motion, no calf tenderness or leg edema Neuro: Alert O x 3, no facial asymmetry, speech clear, no gross motor sensory deficit Psych: Appropriate behavior Skin: No rash ED Course Vital Signs 12/15/19 12/15/19 12/15/19 14:57 14:58 15:00 Temperature 99.2 F Pulse Rate 64 65 Respiratory 21 16 17 Rate Blood Pressure 165/89 165/89 O2 Sat by Pulse 97 100 99 Oximetry 12/15/19 12/15/19 12/15/19 15:09 16:44 17:00 Temperature Pulse Rate 82 68 Respiratory 16 14 20 Rate Blood Pressure 147/92 O2 Sat by Pulse 97 95 Oximetry 12/15/19 18:00 Temperature Pulse Rate 61 Respiratory 12 Rate Blood Pressure 121/63 O2 Sat by Pulse 98 Oximetry - Reevaluation(s) Reevaluation #1: 12/15/19 19:03 pain improved with morphine JAVIER score - Javier Score Age > 65: (0) No Aspirin use within the Past 7 Days: (0) No 3 or more CAD Risk Factors: (1) Yes 2 or more Angina events in past 24 hrs: (1) Yes Known CAD with more than 50% Stenosis: (0) No Elevated Cardiac Markers: (0) No ST Deviation Greater than 0.5mm: (0) No JAVIER Score: 2 ED Medical Decision Making - Lab Data Result diagrams: 12/15/19 15:36 12/15/19 15:36 Lab Results 12/15/19 12/15/19 12/15/19 Range/Units 15:36 15:36 15:36 WBC 8.2 (4.5-11.0) K/mm3 RBC 3.97 (3.65-5.03) M/mm3 Hgb 14.2 (10.1-14.3) gm/dl Hct 40.6 (30.3-42.9) % MCV 102 H (79-97) fl MCH 36 H (28-32) pg MCHC 35 H (30-34) % RDW 13.6 (13.2-15.2) % Plt Count 244 (140-440) K/mm3 Lymph % (Auto) 39.2 H (13.4-35.0) % [place] % (Auto) 4.7 (0.0-7.3) % Eos % (Auto) 1.2 (0.0-4.3) % Baso % (Auto) 0.9 (0.0-1.8) % Lymph # 3.2 (1.2-5.4) K/mm3 [place] # 0.4 (0.0-0.8) K/mm3 Eos # 0.1 (0.0-0.4) K/mm3 Baso # 0.1 (0.0-0.1) K/mm3 Seg Neutrophils % 54.0 (40.0-70.0) % Seg Neutrophils # 4.4 (1.8-7.7) K/mm3 PT 12.7 (12.2-14.9) Sec. INR 0.94 (0.87-1.13) Sodium 140 (137-145) mmol/L Potassium 4.2 (3.6-5.0) mmol/L Chloride 101.4 (98-107) mmol/L Carbon Dioxide 26 (22-30) mmol/L Anion Gap 17 mmol/L BUN 18 H (7-17) mg/dL Creatinine 1.1 (0.7-1.2) mg/dL Estimated GFR > 60 ml/min BUN/Creatinine Ratio 16 % Glucose 118 H (65-100) mg/dL Calcium 10.1 (8.4-10.2) mg/dL Total Bilirubin 0.40 (0.1-1.2) mg/dL AST 21 (5-40) units/L ALT 27 (7-56) units/L Alkaline Phosphatase 49 (35-129) units/L Troponin T < 0.010 (0.00-0.029) ng/mL Total Protein 7.5 (6.3-8.2) g/dL Albumin 4.2 (3.9-5) g/dL Albumin/Globulin Ratio 1.3 % Urine Color (Yellow) Urine Turbidity (Clear) Urine pH (5.0-7.0) Ur Specific [place] (1.003-1.030) Urine Protein (Negative) mg/dL Urine Glucose (UA) (Negative) mg/dL Urine Ketones (Negative) mg/dL Urine Blood (Negative) Urine Nitrite (Negative) Urine Bilirubin (Negative) Urine Urobilinogen (<2.0) mg/dL Ur Leukocyte Esterase (Negative) Urine WBC (Auto) (0.0-6.0) /HPF Urine RBC (Auto) (0.0-6.0) /HPF U Epithel Cells (Auto) (0-13.0) /HPF Urine Mucus /HPF 05/20/20 Range/Units 16:02 WBC (4.5-11.0) K/mm3 RBC (3.65-5.03) M/mm3 Hgb (10.1-14.3) gm/dl Hct (30.3-42.9) % MCV (79-97) fl MCH (28-32) pg MCHC (30-34) % RDW (13.2-15.2) % Plt Count (140-440) K/mm3 Lymph % (Auto) (13.4-35.0) % [place] % (Auto) (0.0-7.3) % Eos % (Auto) (0.0-4.3) % Baso % (Auto) (0.0-1.8) % Lymph # (1.2-5.4) K/mm3 [place] # (0.0-0.8) K/mm3 Eos # (0.0-0.4) K/mm3 Baso # (0.0-0.1) K/mm3 Seg Neutrophils % (40.0-70.0) % Seg Neutrophils # (1.8-7.7) K/mm3 PT (12.2-14.9) Sec. INR (0.87-1.13) Sodium (137-145) mmol/L Potassium (3.6-5.0) mmol/L Chloride (98-107) mmol/L Carbon Dioxide (22-30) mmol/L Anion Gap mmol/L BUN (7-17) mg/dL Creatinine (0.7-1.2) mg/dL Estimated GFR ml/min BUN/Creatinine Ratio % Glucose (65-100) mg/dL Calcium (8.4-10.2) mg/dL Total Bilirubin (0.1-1.2) mg/dL AST (5-40) units/L ALT (7-56) units/L Alkaline Phosphatase (35-129) units/L Troponin T (0.00-0.029) ng/mL Total Protein (6.3-8.2) g/dL Albumin (3.9-5) g/dL Albumin/Globulin Ratio % Urine Color Yellow (Yellow) Urine Turbidity Clear (Clear) Urine pH 5.0 (5.0-7.0) Ur Specific [place] 1.030 (1.003-1.030) Urine Protein 30 mg/dl (Negative) mg/dL Urine Glucose (UA) Neg (Negative) mg/dL Urine Ketones Tr (Negative) mg/dL Urine Blood Sm (Negative) Urine Nitrite Neg (Negative) Urine Bilirubin Neg (Negative) Urine Urobilinogen 2.0 (<2.0) mg/dL Ur Leukocyte Esterase Neg (Negative) Urine WBC (Auto) 1.0 (0.0-6.0) /HPF Urine RBC (Auto) 3.0 (0.0-6.0) /HPF U Epithel Cells (Auto) 3.0 (0-13.0) /HPF Urine Mucus 2+ /HPF - EKG Data -: EKG Interpreted by Mo EKG shows normal: sinus rhythm, ST-T waves (no stemi) Rate: normal (65) - Radiology Data Radiology results: report reviewed CTA chest, abdomen, and pelvis with contrast INDICATION : cp, back pain, epig astric pain. TECHNIQUE: Axial imaging performed through the chest, abdomen, pelvis, with contrast bolus timing set to maximize opacification of the aorta. 3-plane MIP reformatted images were obtained. All CT scans at this location are performed using CT dose reduction for ALARA by means of automated exposure control. 100 mL of intravenous contrast administered. COMPARISON: FINDINGS: Angiographic findings: Contrast bolus timing is adequate. The aorta is normal in size throughout its entire course, with mild atherosclerotic disease primarily in the infrarenal abdominal aorta. Branch vessels are patent. There is no aneurysm or dissection. The pulmonary arteries are also well opacified with no f illing defect present to suggest PTE. Nonangiographic findings: Chest: The heart and great vessels appear unremarkable. There is mild bibasilar atelectasis with otherwise clear lungs. No acute osseous abnormality identified. Abdomen/pelvis: The liver, gallbladder, spleen, pancreas, adrenals, and kidneys appear unremarkable. There is mild inflammatory change centered about the second segment of the duodenum with suggestion of mild wall thickening. Shotty surrounding lymph nodes are present as well. No pancreatic head mass or stone disease identified. No ductal dilatation. Urinary bladder is unremarkable. There is no pelvic free fluid. Uterus is surgically absent. No acute colonic abnormality identified. There is mild diverticulosis. The appendix is normal. Degenerative changes are present in the spine with nothing acute. IMPRESSION: 1. No acute vascular abnormality identified. 2. Mild stranding about the second segment of the duodenum where there is suggestion of mild wall thickening. Considerations include duodenitis or early/mild pancreatitis. No bowel obstructi on or perforation. CHEST 1 VIEW INDICATION / CLINICAL INFORMATION: cp. Chest pain COMPARISON: None available. FINDINGS: SUPPORT DEVICES: None. HEART / MEDIASTINUM: No significant abnormality. LUNGS / PLEURA: No significant pulmonary or pleural abnormality. No pneumothorax. ADDITIONAL FINDINGS: No significant additional findings. IMPRESSION: 1. No acute findings. - Medical Decision Making Patient symptoms improved after morphine. Chest pain is somewhat reproducible however, patient has several cardiac risk factors and will be brought into the ED for cardiac work-up. Patient also received Pepcid for duodenitis seen on CT. Hospitalist informed for admission. No signs of ST elevation SC at this time - Differential Diagnosis Gastritis, PE, dissection, costochondritis, SC, unstable angina Critical Care Time: No Critical care attestation.: If time is entered above; I have spent that time in minutes in the direct care of this critically ill patient, excluding procedure time. ED Disposition Clinical Impression: Chest pain, Duodenitis, HTN (hypertension), Smoker, Obesity Disposition: OP ADMIT IP TO THIS HOSP Is pt being admited?: Yes Condition: Stable Time of Disposition: 20:01 (Dr Jernigan/hosp)
--- NOTE | 2019-12-15 18:28 | Cat Scan Report ---
CTA chest, abdomen, and pelvis with contrast INDICATION : cp, back pain, epigastric pain. TECHNIQUE: Axial imaging performed through the chest, abdomen, pelvis, with contrast bolus timing se t to maximize opacification of the aorta. 3-plane MIP reformatted images were obtained. All CT scans at this location are performed using CT dose reduction for ALARA by means of automated exposure cont rol. 100 mL of intravenous contrast administered. COMPARISON: FINDINGS: Angiographic findings: Contrast bolus timing is adequate. The aorta is normal in size throughout its entire course, with mil d atherosclerotic disease primarily in the infrarenal abdominal aorta. Branch vessels are patent. The re is no aneurysm or dissection. The pulmonary arteries are also well opacified with no filling defec t present to suggest PTE. Nonangiographic findings: Chest: The heart and great vessels appear unremarkable. There is mild bibasilar atelectasis with othe rwise clear lungs. No acute osseous abnormality identified. Abdomen/pelvis: The liver, gallbladder, spleen, pancreas, adrenals, and kidneys appear unremarkable. There is mild inflammatory change centered about the second segment of the duodenum with suggestion o f mild wall thickening. Shotty surrounding lymph nodes are present as well. No pancreatic head mass o r stone disease identified. No ductal dilatation. Urinary bladder is unremarkable. There is no pelvic free fluid. Uterus is surgically absent. No acute colonic abnormality identified. There is mild diverticulosis. The appendix is normal. Degenerative c hanges are present in the spine with nothing acute. IMPRESSION: 1. No acute vascular abnormality identified. 2. Mild stranding about the second segment of the duodenum where there is suggestion of mild wall thi ckening. Considerations include duodenitis or early/mild pancreatitis. No bowel obstruction or perfor ation. Signer Name: López Buckner MD Signed: 12/15/2019 6:24 PM Workstation Name: [id number]
[2019-12-15] MEDS ORDERED: FAMOTIDINE 20 MG/2 ML INJ IV ONE ×2 (19:02→21:52)
--- NOTE | 2019-12-15 22:05 | Event Note ---
Date: 12/15/19 See H/p in reports Chest pain-r/o [place] CAD
[2019-12-15] MEDS ORDERED: oxyCODONE /ACETAMINOPHEN 5-325MG TAB PO PRN (22:06)
[2019-12-15] MEDS ORDERED: ONDANSETRON 4 MG/2 ML INJ IV PRN (22:06)
[2019-12-15] MEDS ORDERED: ACETAMINOPHEN 325 MG TAB PO PRN (22:06)
[2019-12-15] MEDS ORDERED: traMADol 50 MG TAB PO PRN (22:06)
[2019-12-15] MEDS ORDERED: METOCLOPRAMIDE 10 MG/2 ML INJ IV PRN (22:06)
[2019-12-15] MEDS: HYDROmorphone 1 MG/1 ML INJ IV PRN (22:22)
[2019-12-16] MEDS: HYDROmorphone 1 MG/1 ML INJ IV PRN (05:01)
[2019-12-16 05:05] LABS: Basophils # (Auto) 0.1 K/mm3 (0.0-0.1); Basophils % (Auto) 0.9 % (0.0-1.8); Eosinophils # (Auto) 0.1 K/mm3 (0.0-0.4); Eosinophils % (Auto) 1.4 % (0.0-4.3); Hematocrit 38.3 % (30.3-42.9); Lymphocytes # (Auto) 3.2 K/mm3 (1.2-5.4); Lymphocytes % (Auto) 46.3 % (13.4-35.0); Mean Corpuscular HGB Conc 34 % (30-34); Mean Corpuscular Volume 104 fl (79-97); Monocytes # (Auto) 0.4 K/mm3 (0.0-0.8); Monocytes % (Auto) 5.7 % (0.0-7.3); Platelet Count 234 K/mm3 (140-440); Red Blood Count 3.69 M/mm3 (3.65-5.03); Red Cell Distribution Width 13.3 % (13.2-15.2)
[2019-12-16 05:29] LABS: Alanine Aminotransferase 23 units/L (7-56); Albumin 3.9 g/dL (3.9-5); BUN/Creatinine Ratio 20; Blood Urea Nitrogen 16 mg/dL (7-17); Calcium 9.5 mg/dL (8.4-10.2); Hemolysis Index 13
[2019-12-16] MEDS: INSULIN LISPRO 100 UNIT/ML SUB-Q SCH ×2 (07:30→11:30)
[2019-12-16] MEDS ORDERED: REGADENOSON 0.4 MG/5 ML INJ IV ONE ×2 (07:32→07:36)
[2019-12-16] MEDS ORDERED: metFORMIN XR 500MG TAB PO SCH (08:00)
[2019-12-16] MEDS ORDERED: atenoloL 25 MG TAB PO SCH (10:00)
[2019-12-16] MEDS ORDERED: LISINOPRIL 5 MG TAB PO SCH (10:00)
[2019-12-16] MEDS ORDERED: FAMOTIDINE 20 MG TAB PO SCH (10:00)
[2019-12-16] MEDS ORDERED: HEPARIN 5,000 UNIT/1 ML VIAL SUB-Q SCH (10:15)
--- NOTE | 2019-12-16 10:21 | Treadmill Report ---
NUCLEAR STRESS TEST REFERRING PHYSICIAN: Dr. Jernigan. PROTOCOL: The patient was brought to the stress lab in a postoperative state, given 10 mCi of technetium 99m at rest. The patient underwent rest imaging. The patient underwent Lexiscan stress test per standard protocol. At peak stress, the patient was given 26 mCi of technetium 99m. Shortly thereafter, the patient underwent stress imaging. Raw imaging reveals mild GI artifact, no significant motion effect. SPECT images examined carefully in horizontal long axis, vertical long axis, short axis views. There is normal homogenous uptake of radioisotope in all four segments. No evidence of significant fixed or reversible perfusion defects suggestive of prior infarction or ischemia. Gated wall motion was normal systolic thickening, calculated ejection fraction 69%. CONCLUSIONS: 1. Normal myocardial perfusion scan without evidence of active ischemia or prior infarction. 2. Normal left ventricular systolic performance without evidence of transient ischemic dilatation or stress-induced segmental wall motion abnormalities. JOB# [id number] SBM/NTS
--- NOTE | 2019-12-16 11:16 | History and Physical Report ---
CHIEF COMPLAINT: Chest pain. HISTORY OF PRESENT ILLNESS: A 49-year-old female with history of hypertension, coronary artery disease, obesity and nicotine dependence, comes in for left-sided chest pain for 5 days. Chest pain is about 8 on a scale of 1-10. Dull in character, intermittent in nature. No exacerbating or relieving factors. The patient received 0.4 mg of nitroglycerin and aspirin without any improvement. The patient had no cardiac intervention in the past as per history. No recent travel. No shortness of breath on exertion. PAST MEDICAL HISTORY: Significant for hypertension. PAST SURGICAL HISTORY: Tubal ligation and hysterectomy. SOCIAL HISTORY: One pack a day smoking. Alcohol socially. FAMILY HISTORY: Hypertension. CURRENT MEDICATIONS: Lisinopril 10 mg once a day and atenolol 50 mg once a day. REVIEW OF SYSTEMS: Significant for left-sided chest pain for 5 days. Otherwise, review of systems negative. PHYSICAL EXAMINATION: GENERAL: Middle-aged female, cooperative during examination. VITAL SIGNS: Blood pressure is 143/96 and 120/74, temperature is 99.2, pulse is 64, respirations 21, sats are 97%. HEENT: Unremarkable. Pupils equal and reactive. NECK: Supple, no lymphadenopathy, no thyromegaly. LUNGS: Clear to auscultation and percussion. Good air entry. CARDIOVASCULAR: S1, S2 heard. No gallop, no murmur, no rub. Apical impulse in left fifth intercostal space and midclavicular line. ABDOMEN: Soft and benign. No hepatosplenomegaly. No guarding, no rigidity. Hernial orifices are normal. EXTREMITIES: Good pedal pulses. No pedal edema. CENTRAL NERVOUS SYSTEM: Alert and oriented x 4, nonfocal exam. DIAGNOSTIC DATA: EKG shows normal sinus rhythm, no acute ST-T wave changes. Heart rate ____. LABORATORY DATA: Significant for normal CBC with high MCH and MCV. Normal electrolytes. Glucose is 118. A1c is 5.6. Urine is normal. Chest x-ray was normal. Chest CTA shows no acute vascular abnormalities. Mild adrenal thickening or early/mild pancreatis. Abdominal CTA shows no acute vascular abnormalities. Chest x-ray was no acute findings. ASSESSMENT AND PLAN: 1. Chest pain, rule out myocardial infarction. Chest pain protocol. Serial troponins. Lexiscan in the morning. The patient says she cannot do exercise stress test. 2. Hypertension. Continue antihypertensives. 3. Type 2 diabetes were under good control. Continue metformin and Accu-Cheks before meals and at bedtime. Hemoglobin A1c is 5.6. 4. Deep venous thrombosis prophylaxis, heparin 5000 q. 12. JOB# [id number] VSM/NTS
--- NOTE | 2019-12-16 17:09 | Discharge Summary ---
Providers - Providers Date of Admission: 12/15/19 20:03 Date of discharge: 12/16/19 Attending physician: ISMAEL CORREA Primary care physician: HAND SPINNER Hospitalization Condition: Stable Procedures: Stress test--negative CT angiogram of the chest-negative CT angiogram of the abdomen and pelvis negative Chest x-ray no acute findings Hospital course: Patient was admitted for chest pain rule out OR protocol patient also had extensive work-up in the emergency room for PE. Patient has localized tenderness of the chest wall. No exertional chest pain. Patient has history of hypertension and type 2 diabetes. Patient had troponins which were negative and stress test which was negative. Discharge diagnosis #1 costochondritis--patient has localized tenderness on the second third fourth costochondral junctions on both sides. Patient counseled about costochondritis and patient to be initiated on anti-inflammatories meloxicam 7.5 twice daily #2 hypertension continue atenolol and lisinopril #3 type 2 diabetes continue Metformin XR #4 low back pain-sciatica--patient to continue tramadol. Patient also counseled about weight and exercise. Patient is morbidly obese. Patient did take aspirin on a regular basis. Patient to follow-up with PCP in 1 week time. Disposition: DC-01 TO HOME OR SELFCARE Core Measure Documentation - Palliative Care Palliative Care/ Comfort Measures: Not Applicable - Core Measures Any of the following diagnoses?: none Exam - Constitutional Vitals: Temp Pulse Resp BP Pulse Ox 98.6 F 54 L 20 159/77 99 12/16/19 12:13 12/16/19 13:00 12/16/19 12:32 12/16/19 12:13 12/16/19 12:32 General appearance: Present: no acute distress, well-nourished - EENT Eyes: Present: PERRL ENT: hearing intact, clear oral mucosa - Neck Neck: Present: supple, normal ROM - Respiratory Respiratory effort: normal Respiratory: bilateral: CTA - Cardiovascular Heart rate: 75 Rhythm: regular Heart Sounds: Present: S1 & S2. Absent: rub, click Details: Chest wall tenderness present - Extremities Extremities: no ischemia, pulses symmetrical, No edema Peripheral Pulses: within normal limits - Abdominal General gastrointestinal: Present: soft, non-tender, non-distended, normal bowel sounds Female genitourinary: Present: normal - Integumentary Integumentary: Present: clear, warm, dry - Musculoskeletal Musculoskeletal: gait normal, strength equal bilaterally - Psychiatric Psychiatric: appropriate mood/affect, intact judgment & insight - Neurologic Neurologic: CNII-XII intact, moves all extremities Plan Activity: no restrictions Diet: low salt Follow up with: PRIMARY CARE, [Primary Care Provider] - 7 Days PAM JAMES MD [Staff Physician] - 7 Days
[2019-12-16 18:23] VITALS: BP 134/88
== END 2019-12-16 18:19 | disposition home or self-care (01) ==
LOC: ED 14:05 → 4A 20:03
PROVIDERS: ADMIT Internal Medicine; ATTEND Internal Medicine
DX: M94.0 Chondrocostal junction syndrome [Tietze] (principal); I10 Essential (primary) hypertension; E11.9 Type 2 diabetes mellitus without complications; M54.40 Lumbago with sciatica, unspecified side; I25.10 Atherosclerotic heart disease of native coronary artery without angina pectoris; K29.80 Duodenitis without bleeding; E66.01 Morbid (severe) obesity due to excess calories; F17.200 Nicotine dependence, unspecified, uncomplicated; Z90.710 Acquired absence of both cervix and uterus; Z98.51 Tubal ligation status; Z79.899 Other long term (current) drug therapy; Z68.41 Body mass index [BMI] 40.0-44.9, adult; Z71.6 Tobacco abuse counseling
CPT/HCPCS: 36415; 71045; 71275; 74174; 78452; 80053; 81001; 83036; 84484; 85025; 85610; 93005; 93017; 96374; 96375; 96376; 99285; 99406; A9502; G0378; J1170; J1644; J2270; J2405; J2785; Q9967

== ENCOUNTER 2020-11-08 15:35 | Emergency (ER) | payer MEDICAID, SELFPAY ==
[2020-11-08 16:43] VITALS: BP 95/64
--- NOTE | 2020-11-08 18:32 | Event Note ---
ED Screening Note ED Screening Note: states she having spasms of her abdomen began last night states she has a hx of hernia states she had a CT scan of the abdomen on 10/30/2020 has an appointment with a surgeon on 11/16/2020 +nausea no v/d she is able to tolerate PO Intake normal BM this morning PMHx DM, HTN, arthritis, sciatica no allergies to meds sees a pain specialist This initial assessment/diagnostic orders/clinical plan/treatment(s) is/are subject to change based on patients health status, clinical progression and re-assessment by fellow clinical providers in the ED. Further treatment and workup at subsequent clinical providers discretion. Patient/guardian urged not to elope from the ED as their condition may be serious if not clinically assessed and managed. Initial orders include: labs, UA
[2020-11-08 18:57] LABS: Basophils # (Auto) 0.1 K/mm3 (0.0-0.1); Basophils % (Auto) 1.1 % (0.0-1.8); Eosinophils # (Auto) 0.1 K/mm3 (0.0-0.4); Eosinophils % (Auto) 1.5 % (0.0-4.3); Hematocrit 38.2 % (30.3-42.9); Hemoglobin 13.4 gm/dl (10.1-14.3); Lymphocytes # (Auto) 3.4 K/mm3 (1.2-5.4); Lymphocytes % (Auto) 37.2 % (13.4-35.0); Mean Corpuscular HGB Conc 35 % (30-34); Mean Corpuscular Volume 103 fl (79-97); Monocytes # (Auto) 0.5 K/mm3 (0.0-0.8); Monocytes % (Auto) 5.6 % (0.0-7.3); Platelet Count 231 K/mm3 (140-440); Red Blood Count 3.72 M/mm3 (3.65-5.03); Red Cell Distribution Width 14.2 % (13.2-15.2)
[2020-11-08 19:16] LABS: Albumin 4.2 g/dL (3.9-5); Calcium 9.7 mg/dL (8.4-10.2)
[2020-11-08 20:49] LABS: Bacteria,Urine 1+ /HPF (Negative); Bilirubin,Urine NEG (Negative); Blood,Urine NEG (Negative); Color,Urine Yellow (Yellow); Hyaline Casts,Urine 1 /LPF; Mucus,Urine FEW /HPF; Protein,Urine <15 mg/dL mg/dL (Negative); Urobilinogen,Urine < 2.0 mg/dL (<2.0)
== END 2020-11-09 04:57 | disposition left against medical advice (07) ==
LOC: ED 15:35
DX: R10.9 Unspecified abdominal pain (principal); Z53.21 Procedure and treatment not carried out due to patient leaving prior to being seen by health care provider
CPT/HCPCS: 36415; 80053; 81001; 83690; 85025